=== PATIENT | male | born 1960 | race Caucasian/White ===

== ENCOUNTER 2018-05-26 18:25 | Emergency (ER) | payer MEDICAID ==
[~2018-05-26] VITALS: Ht 175.3 cm; Wt 109.1 kg
[~2018-05-26 18:25] MED LIST: CLIN-26 PO; CLIN300C53 PO; DOXY100C43 PO; EPIN0.3P8 IM; NO HOME MEDS
[2018-05-26 18:34] VITALS: BP 159/102
== END 2018-05-26 19:32 | disposition left against medical advice (07) ==
LOC: ER 18:25
DX: Z48.01 Encounter for change or removal of surgical wound dressing (principal); Z53.21 Procedure and treatment not carried out due to patient leaving prior to being seen by health care provider

== ENCOUNTER 2018-09-21 04:42 | Emergency (ER) | payer MEDICAID ==
[~2018-09-21] VITALS: Ht 175.3 cm; Wt 104.5 kg
[~2018-09-21 04:42] MED LIST changes: -DOXY100C43 PO
[2018-09-21] MEDS ORDERED: CEPH500C5 PO (04:54)
[2018-09-21 04:56] VITALS: BP 165/141
== END 2018-09-21 05:03 | disposition home or self-care (01) ==
LOC: ER 04:43
DX: N50.9 Disorder of male genital organs, unspecified (principal); I10 Essential (primary) hypertension; Z98.890 Other specified postprocedural states; Z88.2 Allergy status to sulfonamides; Z79.899 Other long term (current) drug therapy
CPT/HCPCS: 99283

== ENCOUNTER 2019-06-06 03:30 | Emergency (ER) | payer MEDICAID ==
[~2019-06-06] VITALS: Ht 175.3 cm; Wt 106.8 kg
[~2019-06-06 03:30] MED LIST changes: +CEPH500C5 PO
--- NOTE | 2019-06-06 03:39 | NUR ---
placing wet to dry dressings.
[2019-06-06] MEDS ORDERED: TETanus/Pertussis (Acell)/Diphther VAC/PF (Tdap-Adult) 0.5ml syringe IM ONE (06:00)
[2019-06-06] MEDS ORDERED: bacitracin 15gm ointment TP ONE (06:00)
[2019-06-06] MEDS ORDERED: HYDR-4383 PO (06:07)
[2019-06-06 06:18] VITALS: BP 165/95
[2019-06-06] MEDS ORDERED: SILV20CR13 TOP (06:18)
== END 2019-06-06 06:19 | disposition home or self-care (01) ==
LOC: ER 03:31
DX: T22.20XA Burn of second degree of shoulder and upper limb, except wrist and hand, unspecified site, initial encounter (principal); T21.22XA Burn of second degree of abdominal wall, initial encounter; I10 Essential (primary) hypertension; Z98.890 Other specified postprocedural states; Z88.2 Allergy status to sulfonamides; Z79.899 Other long term (current) drug therapy; X08.8XXA Exposure to other specified smoke, fire and flames, initial encounter; Y93.89 Activity, other specified; Y92.89 Other specified places as the place of occurrence of the external cause; Y99.0 Civilian activity done for income or pay
CPT/HCPCS: 16020; 90471; 99284

== ENCOUNTER 2019-06-06 06:43 | Emergency (ER) | payer MEDICAID ==
[~2019-06-06] VITALS: Ht 175.3 cm; Wt 106.3 kg
[~2019-06-06 06:43] MED LIST changes: +HYDR-4383 PO; +SILV20CR13 TOP
[2019-06-06] MEDS ORDERED: diphenhydrAMINE 25mg capsule PO ONE (07:20)
[2019-06-06 07:35] VITALS: BP 132/72
== END 2019-06-06 07:36 | disposition home or self-care (01) ==
LOC: ER 06:44
DX: T23.101A Burn of first degree of right hand, unspecified site, initial encounter (principal); I10 Essential (primary) hypertension; Z88.2 Allergy status to sulfonamides; X08.8XXA Exposure to other specified smoke, fire and flames, initial encounter; Y93.89 Activity, other specified; Y92.89 Other specified places as the place of occurrence of the external cause; Y99.8 Other external cause status
CPT/HCPCS: 99283; Q0163; 99282

== ENCOUNTER 2019-06-13 10:05 | Outpatient (CLI) | payer MEDICAID ==
[2019-06-13] MEDS ORDERED: LIDOcaine 2% 5ml jelly ONE (11:24)
[2019-06-13] MEDS ORDERED: silver sulfadiazine cream 50gm TP ONE (11:53)
== END 2019-06-13 12:04 | disposition home or self-care (01) ==
LOC: WOUND CARE 10:05
PROVIDERS: ATTEND Surgery
DX: T22.212A Burn of second degree of left forearm, initial encounter (principal); I10 Essential (primary) hypertension; Z87.891 Personal history of nicotine dependence; Z79.899 Other long term (current) drug therapy; Z98.890 Other specified postprocedural states; X08.8XXA Exposure to other specified smoke, fire and flames, initial encounter; Y93.89 Activity, other specified; Y92.89 Other specified places as the place of occurrence of the external cause; Y99.8 Other external cause status
CPT/HCPCS: A6223; G0463; A4663; A6446

== ENCOUNTER 2019-09-10 02:10 | Emergency (ER) | payer MEDICAID ==
[~2019-09-10] VITALS: Ht 175.3 cm; Wt 107.7 kg
--- NOTE | 2019-09-10 04:46 | NUR ---
PT STATES TETANUS UP TO DATE
[2019-09-10] MEDS ORDERED: proparacaine 0.5% ophthalmic drops 15ml EACHEYE ONE (04:50)
[2019-09-10] MEDS ORDERED: erythromycin ophthalmic ointment 1gm tube RIGHTEYE ONE (05:55)
[2019-09-10] MEDS ORDERED: ERYT1OIN6 RIGHTEYE (05:56)
[2019-09-10 06:14] VITALS: BP 135/83
== END 2019-09-10 06:16 | disposition home or self-care (01) ==
LOC: ER 02:11
DX: T15.01XA Foreign body in cornea, right eye, initial encounter (principal); I10 Essential (primary) hypertension; Z98.890 Other specified postprocedural states; Z88.2 Allergy status to sulfonamides; Z91.018 Allergy to other foods; Z79.899 Other long term (current) drug therapy; W22.8XXA Striking against or struck by other objects, initial encounter; Y93.89 Activity, other specified; Y99.8 Other external cause status; Y92.89 Other specified places as the place of occurrence of the external cause
CPT/HCPCS: 65222; 99284

== ENCOUNTER 2019-09-21 05:12 | Emergency (ER) | payer MEDICAID ==
[~2019-09-21] VITALS: Ht 175.3 cm; Wt 106.8 kg
[~2019-09-21 05:12] MED LIST changes: +ERYT1OIN6 RIGHTEYE
[2019-09-21 05:14] VITALS: BP 181/72
[2019-09-21] MEDS ORDERED: CLIN-90 PO (06:23)
[2019-09-21] MEDS ORDERED: PRED20TA PO (06:23)
== END 2019-09-21 06:40 | disposition home or self-care (01) ==
LOC: ER 05:12
DX: L03.221 Cellulitis of neck (principal); L03.114 Cellulitis of left upper limb; I10 Essential (primary) hypertension; Z98.890 Other specified postprocedural states; Z87.891 Personal history of nicotine dependence; Z88.2 Allergy status to sulfonamides; Z79.899 Other long term (current) drug therapy
CPT/HCPCS: 99283

== ENCOUNTER 2020-09-01 01:41 | Emergency (ER) | payer MEDICAID ==
[~2020-09-01] VITALS: Ht 175.3 cm; Wt 106.0 kg
[~2020-09-01 01:41] MED LIST changes: -CEPH500C5 PO; +CLIN-97 PO; -ERYT1OIN6 RIGHTEYE
[2020-09-01 01:58] VITALS: BP 155/86
--- NOTE | 2020-09-01 03:09 | NUR ---
ASKED PT TO COME BACK TO SEE THE DR. HE STATED "HE DID NOT WANT TO WAIT. WE ARE TO BUSY" AND "HIS WILL BE OUT SOON, THERE IS NO REASO TO GO BACK AND MAKE HER WAIT."
== END 2020-09-01 03:14 | disposition left against medical advice (07) ==
LOC: ER 01:42
DX: R21 Rash and other nonspecific skin eruption (principal); Z53.21 Procedure and treatment not carried out due to patient leaving prior to being seen by health care provider